=== PATIENT | female | born 1950 | race Caucasian/White ===

== ENCOUNTER 2017-02-24 13:44 | Emergency (ER) | payer MEDICARE, OTHER ==
[~2017-02-24] VITALS: Ht 162.6 cm; Wt 74.4 kg
--- NOTE | 2017-02-24 13:45 | NUR ---
PT BIB RA S/P SLIP, NO FALL, "I CAUGHT MYSELF" C/O R SHOULDER PAIN AND R POSTERIOR LEG "HAMSTRING" PAIN. UNABLE TO BEAR WEIGHT ON R LEG. NO VISIBLE DEFORMITIES OR SWELLING. NAD NOTED. NO OTHER COMPLAINTS. DENIES KO OR HEAD TRAUMA. PT STATES "I DID NOT HIT THE GROUND". IN ER BED 11.
[2017-02-24] MEDS ORDERED: ONDANSETRON 4 MG TAB.RAPDIS ONE (14:32)
[2017-02-24] MEDS ORDERED: CYCLOBENZAPRINE 10 MG TABLET ONE (14:32)
[2017-02-24] MEDS ORDERED: HYDROCODONE/APAP 5/325MG 1 EACH TABLET ONE (14:32)
[2017-02-24] MEDS: ONDANSETRON 4 MG TAB.RAPDIS SL ONE (14:42)
[2017-02-24] MEDS: CYCLOBENZAPRINE 10 MG TABLET PO ONE (14:42)
[2017-02-24] MEDS: HYDROCODONE/APAP 5/325MG 1 EACH TABLET PO ONE (14:42)
--- NOTE | 2017-02-24 16:25 | NUR ---
Received a call from ED requesting list of outpt rehab facility. Patient in ED, admitted s/p slipped and fell while at [employer]. She is being evaluated by physical therapy and provided with crutches. Spoke with dtr Farida and patient, list of outpt rehab provided. Patient report that she has been going to [facility] in [place] [phone]. She was advised to f/u with her pcp Dr. Cezar Nguyen. Plan is to return home post cleared by PT. Addendum: 02/24/17 at 1842 by MEGA SADLER RN Amended: Links added.
--- NOTE | 2017-02-24 16:26 | NUR ---
RORY SALINAS AT BEDSIDE FOR CRUTCH GAIT TRAINING
--- NOTE | 2017-02-24 17:02 | NUR ---
Patient discharged to home in stable condition. Written and verbal after care instructions given. Patient verbalizes understanding of instruction. ASSISTED TO CAR VIA WHEELCHAIR.
[2017-02-24 17:06] VITALS: BP 103/55
== END 2017-02-24 17:07 | disposition home or self-care (01) ==
LOC: ER 13:46
DX: S76.911A Strain of unspecified muscles, fascia and tendons at thigh level, right thigh, initial encounter (principal); S46.911A Strain of unspecified muscle, fascia and tendon at shoulder and upper arm level, right arm, initial encounter; Z88.2 Allergy status to sulfonamides; Z88.1 Allergy status to other antibiotic agents; I10 Essential (primary) hypertension; W01.0XXA Fall on same level from slipping, tripping and stumbling without subsequent striking against object, initial encounter; Y93.89 Activity, other specified; Y92.89 Other specified places as the place of occurrence of the external cause; Y99.9 Unspecified external cause status
CPT/HCPCS: 73550-TC; A4606; Q0162; Z7610

== ENCOUNTER 2023-08-28 11:22 | Emergency (ER) | payer MEDICARE, OTHER ==
[~2023-08-28] VITALS: Ht 162.6 cm; Wt 74.4 kg
[2023-08-28 13:20] LABS: BASOPHILS # (AUTO) 0.1 K/uL (0.0-0.2); BASOPHILS % (AUTO) 0.7 % (0.0-2.0); EOSINOPHILS # (AUTO) 0.1 K/uL (0.0-0.7); EOSINOPHILS % (AUTO) 1.7 % (0.0-6.0); HEMATOCRIT 40 % (33-45); HEMOGLOBIN 13.2 g/dL (11.5-14.8); LYMPHOCYTES # (AUTO) 2.6 K/uL (0.8-4.8); LYMPHOCYTES % (AUTO) 29.7 % (20.0-44.0); MEAN CORPUSCULAR HEMOGLOBIN 35 PG (26.0-33.0); MEAN CORPUSCULAR HGB CONC 33 g/dl (31.0-36.0); MEAN CORPUSCULAR VOLUME 106 fL (82-100); MONOCYTES # (AUTO) 0.6 K/uL (0.1-1.30); MONOCYTES % (AUTO) 6.5 % (2.0-12.0); NEUTROPHILS # (AUTO) 5.3 K/uL (1.8-8.9); NEUTROPHILS % (AUTO) 61.4 % (43.0-81.0); PLATELET COUNT (AUTO) 298 K/uL (150-450); RED BLOOD CELL COUNT(AUTO) 3.81 MIL/uL (4.0-5.2); RED CELL DISTRIBUTION WIDTH 14.9 % (11.5-15.0); WHITE BLOOD COUNT (AUTO) 8.6 K/uL (4.3-11.0)
[2023-08-28 13:47] LABS: CALCIUM, SERUM 8.6 mg/dL (8.5-10.1); CREATININE 0.8 mg/dL (0.6-1.3); POTASSIUM 3.8 mmol/L (3.5-5.1)
[2023-08-28 13:53] LABS: BILIRUBIN,DIRECT 0.2 mg/dL (0.0-0.2); BILIRUBIN,TOTAL 0.5 mg/dL (0.2-1.0); SALICYLATE 0.5 mg/dL (2.8-20.0); TOTAL PROTEIN, SERUM 6.7 g/dL (6.4-8.2)
[2023-08-28 19:43] VITALS: BP 116/68; TEMP 98.7; O2SAT 100
== END 2023-08-28 19:44 | disposition home or self-care (01) ==
LOC: ER 12:21
DX: T42.4X1A Poisoning by benzodiazepines, accidental (unintentional), initial encounter (principal); F10.129 Alcohol abuse with intoxication, unspecified; Y90.7 Blood alcohol level of 200-239 mg/100 ml; I10 Essential (primary) hypertension; Z88.2 Allergy status to sulfonamides; Z88.8 Allergy status to other drugs, medicaments and biological substances; Z60.2 Problems related to living alone; V89.2XXA Person injured in unspecified motor-vehicle accident, traffic, initial encounter; Y93.89 Activity, other specified; Y92.89 Other specified places as the place of occurrence of the external cause; Y99.8 Other external cause status
CPT/HCPCS: 36415; 70450-TC; 71045-TC; 72125-TC; 80048-TC; 80076-TC; 85025-TC; G0480